=== PATIENT | female | born 1940 | race Caucasian/White ===

== ENCOUNTER 2019-10-22 08:35 | Day surgery (SDC) | payer MEDICARE ==
[2019-10-22] MEDS ORDERED: Buffered Lidocaine 1% SYRIN* 1 ML/SYRINGE INTRADERM ONE (09:11)
[2019-10-22] MEDS ORDERED: Heparin VIAL(*) 5000 UNITS/ML VIAL (FIVE THOUSAND) ONE (09:12)
[2019-10-22] MEDS ORDERED: ceFAZolin 2 GM PREMIX in ORs 2 GM/50 ML BAG (FOR ORs ONLY) ONE (09:12)
[2019-10-22] MEDS ORDERED: Lidocaine 2.5%/Prilocain 2.5%* 5 GM TUBE ONE (09:12)
--- NOTE | 2019-10-22 13:36 | BRIEFOPN ---
Brief Operative/Procedure Note - Operation Details Pre-Op Diagnosis: Right breast cancer Post-Op Diagnosis: Right breast cancer Procedures: Excision of right breast cancer and sentinal lymph node biopsy Surgeon(s)/Proceduralists: Dr. Londono. Assist: Eduardo Anesthesia: MAC Estimated Blood Loss: <20cc Findings: As above Specimen(s)/Culture(s) Description: Breast tissue and lymph nodes Complications: None
--- NOTE | 2019-10-22 14:29 | OP ---
CC: Dr. Kate Gomez; [facility] * DATE OF OPERATION: 10/22/[address] - [facility] DATE OF : 44 SURGEON: Loan Londono MD [facility] SUPERVISOR: CRESENCIO Merino PRE-OP DIAGNOSIS: Right breast cancer. POST-OP DIAGNOSIS: Right breast cancer. OPERATIVE PROCEDURE: Excision of right breast cancer and sentinel lymph node biopsy. INDICATIONS: Ms. Sun is a 79-year-old woman who recently identified cancer in her breast and brought it to medical attention. This was biopsied and shown to be a cancer and she was therefore prepared for surgery. DESCRIPTION OF PROCEDURE: On the morning of surgery, she underwent sentinel lymph node localization without difficulty. She was then brought to the operating room after having been given a thoracic block. She was then placed on the OR table in a supine position and given IV sedation. The right breast and axilla were prepped and draped in the usual sterile fashion. An incision was made over the palpable mass in the right breast and subcutaneous tissue was divided with electrocautery to excise the mass of tissue. This was then handed off with the usual markings. Hemostasis was then assured with electrocautery and once this appeared adequate, a search was made for the sentinel node. Since the breast excision site was close to the location of the nodes in the axilla, the search was made through the breast excision site. The fascia of the lateral pectoralis muscle was incised and the axillary contents were swept posteriorly. Using the navigator, the proximal location of the sentinel nodes was identified, this area was grasped with an Allis clamp and dissected free to expose sentinel node. This was from surrounding tissue using blunt and sharp dissection and clips to control small lymphatic and blood vessels that approached the area. The in situ counts of the first sentinel node were 1125, the ex vivo counts were 122, so a search was made for a second sentinel node. Once it was identified, its in situ counts were 1540, it was excised in a similar fashion and its ex vivo counts were 3085. The axillary bed was then checked and axillary bed counts were 8. The wound was copiously irrigated with saline and again hemostasis was assured with a combination of electrocautery and clips, and clips were placed in the breast cavity to behzad its confines. Once hemostasis appeared adequate, closure was accomplished using 3-0 Vicryl in the subcutaneous layer and the skin was closed with 4-0 Prolene in the subcuticular fashion. Steri-Strips and a dry sterile dressing were applied. All sponge and instrument counts were correct. The patient tolerated the procedure well and was transferred to Recovery in a stable condition. [id number]/[facility] #: [id number] MTDD
[2019-10-22 15:03] VITALS: BP 168/84
== END 2019-10-22 15:23 | disposition home or self-care (01) ==
LOC: SDS 08:35
PROVIDERS: ATTEND Surgery
DX: C50.411 Malignant neoplasm of upper-outer quadrant of right female breast (principal); I25.810 Atherosclerosis of coronary artery bypass graft(s) without angina pectoris; Z95.1 Presence of aortocoronary bypass graft; Z87.891 Personal history of nicotine dependence; I73.9 Peripheral vascular disease, unspecified; E78.00 Pure hypercholesterolemia, unspecified; E78.5 Hyperlipidemia, unspecified; I10 Essential (primary) hypertension; G31.84 Mild cognitive impairment of uncertain or unknown etiology
CPT/HCPCS: 88307; 88342; A9270-GY; J0690; J1644

== ENCOUNTER 2021-10-29 07:26 | Observation (INO) ==
[2021-10-29] MEDS ORDERED: Heparin 1,000 UNIT/ML 10 ml (10,000 UNITS) CATHLAB/DIALYSIS ONE (08:19)
[2021-10-29] MEDS ORDERED: fentaNYL 100 mcg/2 ml 50 MCG/ML VIAL ONE (08:19)
[2021-10-29] MEDS ORDERED: VERAPAMIL 2.5 MG/ML 2 ML VIAL ** 5 mg/2 ml ONE (08:19)
[2021-10-29] MEDS ORDERED: Midazolam 5 mg/5 ml VIAL 1 mg/ml 5 ml VIAL (5 mg) ONE (08:19)
[2021-10-29] MEDS ORDERED: Iohexol 350 (CONTRAST) 200 ML MDV IV ONE ×2 (08:20→10:29)
[2021-10-29] MEDS ORDERED: nitroGLYCERIN DRIP 25,000 MCG/250 ML BTL ONE ×2 (08:20→10:54)
[2021-10-29] MEDS ORDERED: Lidocaine 1% MPF 5 ML VIAL ONE (08:20)
[2021-10-29] MEDS ORDERED: Heparin 2 UNITS/ML 1000 mls 2,000 ML IV ONE (08:20)
[2021-10-29 08:33] LABS: INR 1.08 (0.86-1.15)
[2021-10-29] MEDS ORDERED: Metoprolol Tartrate 5 mg VIAL 5 ml VIAL (1 mg/ml) ONE ×2 (09:44→09:56)
[2021-10-29] MEDS ORDERED: Heparin 2 UNITS/ML 1000 mls 1,000 ML IV ONE (10:02)
[2021-10-29] MEDS ORDERED: hydrALAZINE 20 mg/ml 1 ML Vial IV ONE (10:17)
[2021-10-29] MEDS ORDERED: NS 0.9% 500 ml BAG 1,000 ML IV ONE (11:30)
[2021-10-29] MEDS ORDERED: Flumazenil 0.5 mg/5 ml 0.1 MG/ML 5 ml VIAL ONE (11:32)
[2021-10-29] MEDS ORDERED: Naloxone 0.4 mg VIAL 0.4 mg/ml 1 ml VIAL ONE (11:32)
[2021-10-29 11:42] LABS: Hematocrit 38 % (35-47); Hemoglobin 12.4 g/dL (12.0-16.0); Mean Corpuscular HGB Conc 33 g/dL (31-36); Mean Corpuscular Hemoglobin 30 pg (27-31); Mean Corpuscular Volume 92 fL (80-97); Mean Platelet Volume 8.8 fL (7.4-10.4); Platelet Count 288 10^3/uL (150-450); Red Blood Count 4.08 10^6 /uL (3.70-4.87); Red Cell Distribution Width 14 % (10-15); White Blood Count 7.4 10^3/uL (3.5-10.8)
[2021-10-29 11:50] LABS: ABS Basophils 0.1 10^3/ul (0-0.2); ABS Eosinophils 0.3 10^3/ul (0-0.6); ABS Lymphocytes 2.3 10^3/ul (1.0-4.8); ABS Monocytes 0.4 10^3/ul (0-0.8); ABS Neutrophils 4.4 10^3/ul (1.5-7.7); Eosinophil % 3.5 %; Lymphocyte % 30.5 %
[2021-10-29 12:16] LABS: INR 1.29 (0.86-1.15)
[2021-10-29 12:29] LABS: Albumin 4.1 g/dL (3.2-5.2); Albumin/Globulin Ratio 1.6 (1-3); Calcium 9.1 mg/dL (8.6-10.3); Globulin 2.6 g/dL (2-4); Potassium 4.5 mmol/L (3.5-5.0); Total Bilirubin 0.5 mg/dL (0.2-1.0); Total Protein 6.7 g/dL (6.4-8.9)
[2021-10-29] MEDS ORDERED: Mometasone/Formoter 100/5 MDI INH PRN (14:40)
[2021-10-29] MEDS ORDERED: oxyCODONE/Acetamin 5/325 mg TAB PO PRN (15:34)
[2021-10-29] MEDS ORDERED: oxyCODONE/Acetamin 5/325 mg TAB PO ONE (17:14)
[2021-10-29 17:46] LABS: ABS Basophils 0.1 10^3/ul (0-0.2); ABS Eosinophils 0.1 10^3/ul (0-0.6); ABS Lymphocytes 1.2 10^3/ul (1.0-4.8); ABS Monocytes 0.5 10^3/ul (0-0.8); ABS Neutrophils 6.1 10^3/ul (1.5-7.7); Eosinophil % 1.7 %; Hematocrit 31 % (35-47); Hemoglobin 10.4 g/dL (12.0-16.0); Lymphocyte % 14.5 %; Mean Corpuscular HGB Conc 34 g/dL (31-36); Mean Corpuscular Hemoglobin 31 pg (27-31); Mean Corpuscular Volume 93 fL (80-97); Mean Platelet Volume 8.6 fL (7.4-10.4); Platelet Count 261 10^3/uL (150-450); Red Blood Count 3.31 10^6 /uL (3.70-4.87); Red Cell Distribution Width 14 % (10-15)
[2021-10-30 05:26] LABS: ABS Basophils 0.1 10^3/ul (0-0.2); ABS Eosinophils 0.2 10^3/ul (0-0.6); ABS Lymphocytes 1.4 10^3/ul (1.0-4.8); ABS Monocytes 0.6 10^3/ul (0-0.8); ABS Neutrophils 4.6 10^3/ul (1.5-7.7); Hematocrit 30 % (35-47); Hemoglobin 10.1 g/dL (12.0-16.0); Lymphocyte % 20.6 %; Mean Corpuscular HGB Conc 34 g/dL (31-36); Mean Corpuscular Hemoglobin 31 pg (27-31); Mean Corpuscular Volume 93 fL (80-97); Mean Platelet Volume 8.7 fL (7.4-10.4); Platelet Count 255 10^3/uL (150-450); Red Blood Count 3.26 10^6 /uL (3.70-4.87); Red Cell Distribution Width 14 % (10-15); White Blood Count 6.9 10^3/uL (3.5-10.8)
[2021-10-30 06:05] LABS: Albumin 4.1 g/dL (3.2-5.2); Albumin/Globulin Ratio 2.1 (1-3); Calcium 8.8 mg/dL (8.6-10.3); Potassium 3.6 mmol/L (3.5-5.0); Total Bilirubin 0.6 mg/dL (0.2-1.0); Total Protein 6.1 g/dL (6.4-8.9); eGFR CKD-EPI 68.7 (>60)
[2021-10-30] MEDS ORDERED: Venlafaxine XR 75 mg PO SCH (09:00)
[2021-10-30] MEDS ORDERED: Aspirin EC 81 mg TAB.EC (enteric coated) PO SCH (09:00)
[2021-10-30] MEDS ORDERED: EXEMESTANE 25 MG PO SCH (09:00)
[2021-10-30 09:55] LABS: High Sensitivity Troponin 1 Hr 179 pg/mL (<15)
[2021-10-30 12:06] VITALS: BP 149/74
== END 2021-10-30 11:35 | disposition home or self-care (01) ==
LOC: CHICATH 07:26 → ICU 07:26

== ENCOUNTER 2024-02-06 14:58 | Inpatient (IN) ==
[2024-02-06 16:29] LABS: ABS Monocytes 0.5 10^3/uL (0.0-0.9); ABS Neutrophils 4.8 10^3/uL (1.5-7.6); ABS Nucleated RBC 0.01 10^3/ul; Eosinophil % 0.4 %; Hematocrit 34.9 % (35-45); Hemoglobin 11.5 g/dL (11.5-14.3); Lymphocyte % 15.4 %; Mean Corpuscular Hgb Conc 32.9 g/dL (31-36); Mean Corpuscular Volume 94.2 fL (80-97); Mean Platelet Volume 8.1 fL (7.5-11.2); Nucleated Red Blood Cells % 0.1 %/100WBC (0.0-0.8); Platelet Count 126 10^3/uL (150-450); Red Blood Count 3.71 10^6/uL (3.63-4.92); Red Cell Distribution Width 13.4 % (12-17); White Blood Count 6.4 10^3/uL (3.8-11.8)
[2024-02-06 17:16] LABS: ALT 12 U/L (7-52); AST 18 U/L (13-39); Acetaminophen 45 mcg/mL; Albumin 4.4 g/dL (3.2-5.2); Albumin/Globulin Ratio 1.9 (1-3); Alcohol, S < 13 mg/dL (<13); Alkaline Phosphatase 64 U/L (35-149); Anion Gap 7 mmol/L (2-16); Blood Urea Nitrogen 25 mg/dL (6-24); CO2 Carbon Dioxide 27 mmol/L (22-32); Calcium 8.9 mg/dL (8.6-10.3); Chloride 106 mmol/L (101-111); Creatinine, Serum 1.26 mg/dL (0.51-0.95); Globulin 2.3 g/dL (2-4); Glucose 139 mg/dL (70-100); Potassium 3.8 mmol/L (3.5-5.0); Salicylate < 2.50 mg/dL (<30); Sodium 140 mmol/L (135-145); Total Bilirubin 0.4 mg/dL (0.2-1.0); Total Protein 6.7 g/dL (6.4-8.9); eGFR CKD-EPI 42.9 (>60)
[2024-02-06 17:27] LABS: TSH Ultra Thyroid Stim Horm 1.67 mcIU/mL (0.34-5.60)
[2024-02-06 21:51] LABS: Urine Appearance Clear; Urine Bilirubin Negative (Negative); Urine Blood Negative (Negative); Urine Color Yellow; Urine Glucose Negative (Negative); Urine Ketones Negative (Negative); Urine Nitrite Negative (Negative); Urine Protein 1+ (>=30 mg/dL) (Negative); Urine Specific Gravity 1.044 (1.002-1.030); Urine Urobilinogen Negative (Negative)
[2024-02-06 21:57] LABS: Urine Bacteria Absent /HPF (Absent); Urine Red Blood Cell Trace(0-2/hpf) /HPF (0-Trace); Urine Squamous Epithelial Cell Present /HPF (Absent); Urine White Blood Cell Trace(0-5/hpf) /HPF (0-Trace)
[2024-02-06 22:22] LABS: Urine Benzodiazepine Screen None Detected (None Detect); Urine Cannabinoids Screen None Detected (None Detect); Urine Opiates Screen Presumptive Positive (None Detect)
[2024-02-07] MEDS ORDERED: Al Hydrox/Mg Hydrox/Simet LIQ 30 ML UDC PO PRN (00:53)
[2024-02-07] MEDS ORDERED: Pneumococcal Vac 23-Polyvalent IM ONE (09:00)
[2024-02-07] MEDS ORDERED: COVID VAC 23-24(12+)(Moderna) SYR 0.5 ML IM ONE (09:00)
[2024-02-07] MEDS ORDERED: oxyCODONE/Acetamin 5/325 mg TAB PO PRN (10:14)
[2024-02-07] MEDS: Venlafaxine XR 75 mg PO SCH ×2 (11:31→11:32)
[2024-02-07] MEDS: Cholecalciferol (VIT D3) 1,000 unit TAB PO SCH (11:32)
[2024-02-07] MEDS: Vitamin THERAPEUTIC TAB PO SCH (11:32)
[2024-02-07] MEDS: Aspirin EC 81 mg TAB.EC (enteric coated) PO SCH (11:32)
[2024-02-07] MEDS: Mometasone/Formoter 100/5 MDI INH SCH (15:09)
[2024-02-07] MEDS: EXEMESTANE 25 MG PO SCH (15:52)
[2024-02-07] MEDS: CMC:Venlafaxine 25 mg TAB (NF) PO SCH (20:57)
[2024-02-09 08:42] LABS: Albumin 4.3 g/dL (3.2-5.2); Albumin/Globulin Ratio 1.7 (1-3); Calcium 9.3 mg/dL (8.6-10.3); Creatinine, Serum 1.26 mg/dL (0.51-0.95); Globulin 2.5 g/dL (2-4); HDL Cholesterol 67.6 mg/dL; Potassium 4.4 mmol/L (3.5-5.0); Total Bilirubin 0.6 mg/dL (0.2-1.0); Total Protein 6.8 g/dL (6.4-8.9); eGFR CKD-EPI 42.9 (>60)
[2024-02-10] MEDS: Venlafaxine XR 75 mg PO SCH (15:00)
[2024-02-14] MEDS: PTO:Evolocumab (NF) 140 MG/ML SYRINGE SUBCUT SCH (13:49)
[2024-02-21 10:21] VITALS: BP 170/82
[2024-02-21] MEDS: Cholecalciferol (VIT D3) 1,000 unit TAB PO SCH (11:37)
== END 2024-02-21 03:15 | disposition home or self-care (01) | DRG 881 ==
LOC: BSU 14:58 → ED 14:58 → OBSVTOIN 02-07 00:45 → BSU 02-07 01:23
PROVIDERS: ADMIT Family Medicine; ATTEND Psychiatry & Neurology Psychiatry

== ENCOUNTER 2024-02-28 13:59 | Inpatient (IN) ==
[2024-02-28] MEDS: Cholecalciferol (VIT D3) 1,000 unit TAB PO SCH (17:10)
[2024-02-28 19:34] LABS: ABS Basophils 0.1 10^3/uL (0.0-0.1); ABS Eosinophils 0.2 10^3/uL (0.0-0.5); ABS Lymphocytes 2.1 10^3/uL (1.0-4.8); ABS Monocytes 0.7 10^3/uL (0.0-0.9); ABS Neutrophils 4.4 10^3/uL (1.5-7.6); Eosinophil % 2.3 %; Hematocrit 31.3 % (35-45); Hemoglobin 10.4 g/dL (11.5-14.3); Mean Corpuscular Hemoglobin 31.2 pg (27-33); Mean Corpuscular Hgb Conc 33.3 g/dL (31-36); Mean Corpuscular Volume 93.8 fL (80-97); Platelet Count 178 10^3/uL (150-450); Red Blood Count 3.34 10^6/uL (3.63-4.92); Red Cell Distribution Width 14.2 % (12-17); White Blood Count 7.4 10^3/uL (3.8-11.8)
[2024-02-28 20:19] LABS: ALT 15 U/L (7-52); AST 18 U/L (13-39); Acetaminophen < 15 mcg/mL; Albumin 4.3 g/dL (3.2-5.2); Alcohol, S < 13 mg/dL (<13); Alkaline Phosphatase 56 U/L (35-149); Anion Gap 6 mmol/L (2-16); Blood Urea Nitrogen 30 mg/dL (6-24); CO2 Carbon Dioxide 28 mmol/L (22-32); Calcium 9.8 mg/dL (8.6-10.3); Chloride 106 mmol/L (101-111); Creatinine, Serum 1.11 mg/dL (0.51-0.95); Globulin 2.2 g/dL (2-4); Glucose 83 mg/dL (70-100); Potassium 3.8 mmol/L (3.5-5.0); Salicylate < 2.50 mg/dL (<30); Sodium 140 mmol/L (135-145); Total Bilirubin 0.3 mg/dL (0.2-1.0); Total Protein 6.5 g/dL (6.4-8.9); eGFR CKD-EPI 49.9 (>60)
[2024-02-28 20:33] LABS: TSH Ultra Thyroid Stim Horm 1.01 mcIU/mL (0.34-5.60)
[2024-02-28] MEDS: Multivitamins/Mins AREDS2 (NF) CAP PO SCH (21:53)
[2024-02-28] MEDS: Mometasone/Formoter 100/5 MDI INH SCH (21:59)
[2024-02-29] MEDS: Venlafaxine XR 75 mg PO SCH ×2 (08:41→14:03)
[2024-02-29] MEDS: EXEMESTANE 25 MG PO SCH (08:44)
[2024-02-29] MEDS ORDERED: EVOLOCUMAB 140 MG/ML SUBCUT SCH (18:00)
[2024-02-29] MEDS: Venlafaxine 25 mg TAB (NF) PO SCH (21:14)
[2024-02-29] MEDS: Evolocumab (NF) 140 MG/ML SYRINGE SUBCUT SCH (21:23)
[2024-03-13 10:16] VITALS: BP 151/60
== END 2024-03-13 15:30 | disposition home or self-care (01) | DRG 881 ==
LOC: ED 13:59 → EDHOLD 16:57 → BSU 20:54
PROVIDERS: ADMIT Psychiatry & Neurology Psychiatry; ATTEND Psychiatry & Neurology Psychiatry

== ENCOUNTER 2024-05-06 14:54 | Observation (INO) ==
[2024-05-06 16:12] LABS: Platelet Count Platelets clumped. 10^3/uL (150-450)
[2024-05-06 16:13] LABS: ABS Basophils 0.1 10^3/uL (0.0-0.1); ABS Eosinophils 0.1 10^3/uL (0.0-0.5); ABS Monocytes 0.8 10^3/uL (0.0-0.9); ABS Neutrophils 5.6 10^3/uL (1.5-7.6); Eosinophil % 1.2 %; Hematocrit 42.3 % (35-45); Hemoglobin 13.8 g/dL (11.5-14.3); Lymphocyte % 23.5 %; Mean Corpuscular Hemoglobin 31.1 pg (27-33); Mean Corpuscular Hgb Conc 32.5 g/dL (31-36); Mean Corpuscular Volume 95.6 fL (80-97); Mean Platelet Volume 8.9 fL (7.5-11.2); Red Blood Count 4.43 10^6/uL (3.63-4.92); White Blood Count 8.5 10^3/uL (3.8-11.8)
[2024-05-06 16:16] LABS: High Sens Troponin Baseline 52 pg/mL (<15)
[2024-05-06 16:22] LABS: ALT 16 U/L (7-52); AST 24 U/L (13-39); Albumin 4.5 g/dL (3.2-5.2); Albumin/Globulin Ratio 1.6 (1-3); Alkaline Phosphatase 75 U/L (35-149); Anion Gap 11 mmol/L (2-16); Blood Urea Nitrogen 47 mg/dL (6-24); CO2 Carbon Dioxide 24 mmol/L (22-32); Calcium 10.1 mg/dL (8.6-10.3); Chloride 104 mmol/L (101-111); Creatinine, Serum 1.03 mg/dL (0.51-0.95); Globulin 2.8 g/dL (2-4); Glucose 82 mg/dL (70-100); Potassium 4.2 mmol/L (3.5-5.0); Sodium 139 mmol/L (135-145); Total Bilirubin 0.5 mg/dL (0.2-1.0); Total Protein 7.3 g/dL (6.4-8.9); eGFR CKD-EPI 54.3 (>60)
[2024-05-06 17:37] LABS: High Sensitivity Troponin 1 Hr 42 pg/mL (<15)
[2024-05-06 18:02] LABS: Urine Appearance Clear; Urine Bilirubin Negative (Negative); Urine Blood Negative (Negative); Urine Color Yellow; Urine Glucose Negative (Negative); Urine Ketones 2+ (Negative); Urine Nitrite Negative (Negative); Urine Protein Trace (Negative); Urine Specific Gravity 1.026 (1.002-1.030); Urine Urobilinogen Negative (Negative); Urine pH 5.5 (5.0-8.0)
[2024-05-06] MEDS: Lactated Ringers 1000 ml BAG 1,000 ML IV ONE (19:55)
[2024-05-06 20:53] LABS: Cholesterol 160 mg/dL; HDL Cholesterol 81.7 mg/dL; LDL Cholesterol 54 mg/dL; Triglycerides 122 mg/dL
[2024-05-06 21:06] LABS: TSH Ultra Thyroid Stim Horm 0.71 mcIU/mL (0.34-5.60)
[2024-05-06 21:17] LABS: Vitamin B12 > 1450 pg/mL (180-914)
[2024-05-06] MEDS: Venlafaxine 25 mg TAB (NF) PO SCH (21:35)
[2024-05-06] MEDS: Enoxaparin 40 MG/0.4 ML SYR SUBCUT SCH (22:07)
[2024-05-07 07:00] LABS: Calcium 9.1 mg/dL (8.6-10.3); Creatinine, Serum 1.06 mg/dL (0.51-0.95); Potassium 3.9 mmol/L (3.5-5.0); eGFR CKD-EPI 52.4 (>60)
[2024-05-07] MEDS: Mometasone/Formoter 100/5 MDI INH SCH (08:27)
[2024-05-07] MEDS: Venlafaxine XR 75 mg PO SCH ×2 (08:29→12:47)
[2024-05-07] MEDS: NF: Exemestane 25 mg TAB (NF) PO SCH (08:38)
[2024-05-07] MEDS: Sulfur Hexaflouride MICROSPHR 25 MG VIAL IV PRN (11:20)
[2024-05-07] MEDS ORDERED: Sulfur Hexaflouride MICROSPHR 25 MG VIAL ONE (11:33)
[2024-05-07] MEDS: Lactated Ringers 1000 ml BAG 1,000 ML IV SCH (12:50)
[2024-05-08 07:27] LABS: Calcium 9.3 mg/dL (8.6-10.3); Creatinine, Serum 0.96 mg/dL (0.51-0.95); Magnesium 1.9 mg/dL (1.9-2.7); Potassium 3.9 mmol/L (3.5-5.0); eGFR CKD-EPI 59.1 (>60)
[2024-05-08] MEDS: Potassium Chlor 20 meq TAB.ER PO ONE (10:52)
[2024-05-08] MEDS: Potassium Chloride LIQUID 20 MEQ/15 ML LIQUID PO ONE (10:57)
[2024-05-08] MEDS: NS 0.9% 1000 ml BAG 1,000 ML IV SCH (15:07)
[2024-05-09 13:59] VITALS: BP 132/48
== END 2024-05-09 17:15 | disposition home or self-care (01) ==
LOC: EDHOLD 14:54 → ED 14:54 → SUATTDRO 19:07 → EDHOLD 05-07 14:04 → MED 05-07 19:35
PROVIDERS: ADMIT Hospitalist; ATTEND Internal Medicine